=== PATIENT | female | born 1940 | race Caucasian/White ===

== ENCOUNTER 2020-11-05 17:58 | Inpatient (IN) ==
[2020-11-06] MEDS: Pregabalin 75 MG CAPSULE GTUBE SCH (19:36)
[2020-11-06] MEDS: Morphine Sulfate ER (12 HR) 15 MG TABLET.ER PO SCH (19:37)
[2020-11-06] MEDS: *HR* OxyCODONE Immed Rel 5 MG TABLET PO PRN (21:03)
[2020-11-06] MEDS: cloNIDine HCL 0.1 MG TABLET PO SCH (21:04)
[2020-11-06] MEDS: traZODone 50 MG TABLET PO SCH (21:04)
[2020-11-06] MEDS: QUEtiapine Fumarate 25 MG TABLET PO SCH (21:04)
[2020-11-06] MEDS: diazePAM 2 MG TABLET PO PRN (22:40)
[2020-11-07] MEDS: *HR* OxyCODONE Immed Rel 5 MG TABLET PO PRN ×3 (04:48→20:44)
[2020-11-07 06:16] LABS: Basophils # 0.1 K/mcL (0.0-0.2); Basophils % 0.4 %; Eosinophils # 0.4 K/mcL (0.0-0.6); Eosinophils % 2.9 %; Hemoglobin 7.7 g/dL (11.5-15.4); Immature Granulocytes % 3.8 % (0-4); Lymphocytes # 1.4 K/mcL (0.6-4.6); Lymphocytes % 10.8 %; Mean Corpuscular HGB Conc 33.5 g/dL (31.6-35.5); Mean Corpuscular Hemoglobin 32.1 pg (28.0-33.3); Mean Corpuscular Volume 95.8 fL (83.0-100.0); Mean Platelet Volume 10.4 fL (9.4-12.4); Monocytes # 0.9 K/mcL (0.0-1.3); Monocytes % 6.8 %; Neutrophils # 9.5 K/mcL (1.6-8.9); Platelet Count 335 K/mcL (140-400); Red Cell Distribution Width 18.4 % (11.5-14.5); Segmented Neutrophils % 75.3 %; White Blood Count 12.6 K/mcL (4.3-11.1)
[2020-11-07 06:35] LABS: BUN/Creatinine Ratio 16 (6-26); Blood Urea Nitrogen 11 mg/dL (8-23); Calcium 8.2 mg/dL (8.6-10.3); Carbon Dioxide 24 mEq/L (23-29); Chloride 101 mEq/L (98-107); Glucose 103 mg/dL (70-105); Osmolality,Calculated 278 (280-300); Potassium 3.8 mEq/L (3.5-5.1); Sodium 134 mEq/L (136-145); eGFR For African Americans > 60 (> 60); eGFR For Non-African Americans > 60 (> 60)
[2020-11-07] MEDS: allopurinoL 100 MG TABLET PO SCH (07:51)
[2020-11-07] MEDS: Pregabalin 75 MG CAPSULE GTUBE SCH ×2 (07:51→20:44)
[2020-11-07] MEDS: polyethylene glycoL 3350 17 GM POWD.PACK PO SCH (07:51)
[2020-11-07] MEDS: Morphine Sulfate ER (12 HR) 15 MG TABLET.ER PO SCH ×2 (07:51→18:50)
[2020-11-07] MEDS: Loratadine 10 MG TABLET PO SCH (07:52)
[2020-11-07] MEDS: Cyanocobalamin (B-12) 1,000 MCG TABLET PO SCH (07:52)
[2020-11-07] MEDS: cloNIDine HCL 0.1 MG TABLET PO SCH ×2 (07:52→20:44)
[2020-11-07] MEDS: Spironolactone 25 MG TABLET PO SCH (07:52)
[2020-11-07] MEDS: Furosemide 20 MG TABLET PO SCH (07:53)
[2020-11-07] MEDS ORDERED: NON-FORMULARY MEDICATION 1 EACH EACH (Losartan/Hydrochlorothiazide [Losartan-Hctz 100-12.5 PO SCH (09:00)
[2020-11-07] MEDS ORDERED: hydroCHLOROthiazide 25 MG TABLET PO SCH (09:00)
[2020-11-07] MEDS: Acetaminophen 325 MG TABLET PO PRN (15:54)
[2020-11-07] MEDS: diazePAM 2 MG TABLET PO PRN (16:27)
[2020-11-07] MEDS ORDERED: *HR* OxyCODONE Immed Rel 5 MG TABLET PO ONE (16:35)
[2020-11-07] MEDS: Ipratropium/Albuterol Neb 3 ML IH SCH (20:31)
[2020-11-07] MEDS: QUEtiapine Fumarate 25 MG TABLET PO SCH (20:44)
[2020-11-07] MEDS: traZODone 50 MG TABLET PO SCH (20:44)
[2020-11-08] MEDS: Ipratropium/Albuterol Neb 3 ML IH SCH ×7 (00:40→23:13)
[2020-11-08] MEDS: *HR* OxyCODONE Immed Rel 5 MG TABLET PO PRN ×4 (04:42→22:55)
[2020-11-08] MEDS: diazePAM 2 MG TABLET PO PRN ×2 (05:26→14:41)
[2020-11-08] MEDS ORDERED: *HR* Metoprolol 5 MG/5 ML VIAL IVP ONE (06:23)
[2020-11-08] MEDS: Acetaminophen 325 MG TABLET PO PRN ×2 (06:57→14:41)
[2020-11-08] MEDS: Furosemide 20 MG TABLET PO SCH (09:47)
[2020-11-08] MEDS: cloNIDine HCL 0.1 MG TABLET PO SCH ×2 (09:48→20:54)
[2020-11-08] MEDS: Spironolactone 25 MG TABLET PO SCH (09:48)
[2020-11-08] MEDS: Pregabalin 75 MG CAPSULE GTUBE SCH ×2 (09:48→20:15)
[2020-11-08] MEDS: Loratadine 10 MG TABLET PO SCH (09:48)
[2020-11-08] MEDS: Morphine Sulfate ER (12 HR) 15 MG TABLET.ER PO SCH ×2 (09:49→20:15)
[2020-11-08] MEDS: allopurinoL 100 MG TABLET PO SCH (09:49)
[2020-11-08] MEDS: Cyanocobalamin (B-12) 1,000 MCG TABLET PO SCH (09:49)
[2020-11-08] MEDS: polyethylene glycoL 3350 17 GM POWD.PACK PO SCH (09:50)
[2020-11-08] MEDS ORDERED: 0.9 % Sodium Chloride 500 ML IVC ONE (18:27)
[2020-11-08] MEDS: cephALEXin 500 MG CAPSULE PO SCH (19:49)
[2020-11-08] MEDS: 0.9 % Sodium Chloride 1,000 ML IVC SCH (19:49)
[2020-11-08] MEDS: traZODone 50 MG TABLET PO SCH (20:14)
[2020-11-08] MEDS: QUEtiapine Fumarate 25 MG TABLET PO SCH (20:15)
[2020-11-08] MEDS ORDERED: cephALEXin 500 MG CAPSULE PO SCH ×2 (21:00)
[2020-11-08] MEDS: Ondansetron ODT 4 MG TAB.RAPDIS PO PRN (22:38)
[2020-11-09] MEDS ORDERED: *HR* Metoprolol 5 MG/5 ML VIAL IVP ONE (00:09)
[2020-11-09] MEDS: Ipratropium/Albuterol Neb 3 ML IH SCH ×3 (03:50→12:19)
[2020-11-09] MEDS: *HR* OxyCODONE Immed Rel 5 MG TABLET PO PRN (05:35)
[2020-11-09 08:15] LABS: Basophils % 0.2 %; Eosinophils # 0.2 K/mcL (0.0-0.6); Eosinophils % 2.1 %; Hematocrit 18.8 % (35.3-44.9); Hemoglobin 6.3 g/dL (11.5-15.4); Immature Granulocytes % 1.8 % (0-4); Lymphocytes # 1.2 K/mcL (0.6-4.6); Mean Corpuscular HGB Conc 33.5 g/dL (31.6-35.5); Mean Corpuscular Hemoglobin 32.3 pg (28.0-33.3); Mean Corpuscular Volume 96.4 fL (83.0-100.0); Mean Platelet Volume 9.9 fL (9.4-12.4); Monocytes # 0.7 K/mcL (0.0-1.3); Monocytes % 7.4 %; Neutrophils # 6.7 K/mcL (1.6-8.9); Platelet Count 351 K/mcL (140-400); Red Blood Count 1.95 M/mcL (3.82-4.97); Red Cell Distribution Width 18.6 % (11.5-14.5); Segmented Neutrophils % 75.5 %; White Blood Count 8.9 K/mcL (4.3-11.1)
[2020-11-09 08:34] LABS: BUN/Creatinine Ratio 18 (6-26); Blood Urea Nitrogen 14 mg/dL (8-23); Calcium 8.3 mg/dL (8.6-10.3); Carbon Dioxide 24 mEq/L (23-29); Chloride 101 mEq/L (98-107); Glucose 108 mg/dL (70-105); Osmolality,Calculated 275 (280-300); Potassium 4.7 mEq/L (3.5-5.1); Sodium 132 mEq/L (136-145); eGFR For African Americans > 60 (> 60); eGFR For Non-African Americans > 60 (> 60)
[2020-11-09] MEDS: Loratadine 10 MG TABLET PO SCH (08:55)
[2020-11-09] MEDS: cephALEXin 500 MG CAPSULE PO SCH (08:56)
[2020-11-09] MEDS: Ondansetron ODT 4 MG TAB.RAPDIS PO PRN (08:56)
[2020-11-09] MEDS: Morphine Sulfate ER (12 HR) 15 MG TABLET.ER PO SCH (08:57)
[2020-11-09] MEDS: Acetaminophen 325 MG TABLET PO PRN (08:57)
[2020-11-09] MEDS: Pregabalin 75 MG CAPSULE GTUBE SCH (08:58)
[2020-11-09] MEDS: allopurinoL 100 MG TABLET PO SCH (08:58)
[2020-11-09] MEDS: Cyanocobalamin (B-12) 1,000 MCG TABLET PO SCH (08:59)
[2020-11-09] MEDS: polyethylene glycoL 3350 17 GM POWD.PACK PO SCH (09:00)
[2020-11-09] MEDS: 0.9 % Sodium Chloride 1,000 ML IVC SCH (09:22)
[2020-11-09] MEDS ORDERED: 0.9 % Sodium Chloride 500 ML IVC ONE (09:38)
[2020-11-09] MEDS ORDERED: Cefepime HCl 1,000 MG in 0.9 % Sodium Chloride Mini Bag 100 ML IVPB SCH (10:00)
[2020-11-09] MEDS ORDERED: cefTRIAXone 2,000 MG in 0.9 % Sodium Chloride Mini Bag 100 ML IVPB ONE (10:00)
[2020-11-09] MEDS ORDERED: Metoprolol XL (24 HR) Succ 50 MG TAB.ER.24H PO SCH (11:15)
[2020-11-09 12:48] VITALS: BP 101/52
== END 2020-11-09 13:20 | disposition short-term general hospital (02) | DRG 559 ==
LOC: INPPIK 11-06 16:39
PROVIDERS: ADMIT Family Medicine; ATTEND Family Medicine